=== PATIENT | female | born 1970 | race Caucasian/White ===

== ENCOUNTER 2017-06-01 16:58 | Emergency (ER) | END 2017-06-01 17:39 | disposition home or self-care (01) | DX: K08.89 Other specified disorders of teeth and supporting structures (principal) | CPT/HCPCS: Z7502; Z7610 ==

== ENCOUNTER 2017-06-02 16:28 | Emergency (ER) | payer MEDICAID ==
[~2017-06-02] VITALS: Wt 71.0 kg
[~2017-06-02 16:28] MED LIST: AMOX1TAB10 PO; HYDR-906 PO
[2017-06-02] MEDS ORDERED: HYDROCODONE/APAP (5/325) TAB PO STA (16:59)
[2017-06-02] MEDS ORDERED: ACET1TAB40 PO (17:00)
[2017-06-02] MEDS ORDERED: AMOX1TAB9 PO (17:00)
--- NOTE | 2017-06-02 17:12 | ERD ---
ER Documentation Chief Complaint Date/Time DATE: 06/02/17 TIME: 17:08 Chief Complaint TOOTHACHE, SEEN HERE YESTERDAY WITH SAME HPI 47 year old female presents with left upper molar pain for past week, patient was evaluated at this facility yesterday and was given antibiotics and norco however patient states her pharmacy did not have the medication. She states pain is constant moderate in severity. Denies fever ROS All systems reviewed and are negative except as per history of present illness. Medications Home Meds Active Scripts Amoxicillin/Potassium Clav (Amox-Clav 500-125 mg Tablet) 500-125 mg Tab, 1 TAB PO BID for 10 Days, TAB Prov:WESLEY TRAN PA-C 06/02/17 Acetaminophen with Codeine (Acetaminophen-Cod #3 Tablet) 1 Each Tablet, 1 TAB PO Q6H Y for PAIN, #20 TAB Prov:WESLEY TRAN PA-C 06/02/17 Amoxicillin/Potassium Clav (Amox-Clav 875-125 mg Tablet) 875-125 mg Tab, 1 TAB PO BID for 7 Days, #14 TAB Prov:MALLORY DIAZ PA-C 06/01/17 Hydrocodone/Acetaminophen (Brinson 5-325 Tablet) 1 Each Tablet, 1 TAB PO Q6H Y for PAIN, #7 TAB Prov:MALLORY DIAZ PA-C 06/01/17 Allergies Allergies: Coded Allergies: No Known Allergy (Unverified , 06/02/17) PMhx/Soc History of Surgery: No Anesthesia Reaction: No Hx Neurological Disorder: No Hx Respiratory Disorders: No Hx Cardiac Disorders: No Hx Psychiatric Problems: No Hx Miscellaneous Medical Probl: Yes (GASTRIC ULCER) Hx Alcohol Use: No Hx Substance Use: No Hx Tobacco Use: No Smoking Status: Never smoker Physical Exam Vitals Vital Signs Date Time Temp Pulse Resp B/P Pulse Ox O2 Delivery O2 Flow Rate FiO2 06/02/17 16:34 97.7 78 17 107/70 100 Physical Exam Const: WD.WN Head: left upper molar decay Eyes: Normal Conjunctiva ENT: Normal External Ears, Nose and Mouth. Neck: Full range of motion..~ No meningismus. Resp: Clear to auscultation bilaterally Cardio: Regular rate and rhythm, no murmurs Abd: Soft, non tender, non distended. Normal bowel sounds Skin: No petechiae or rashes Back: No midline or flank tenderness Ext: No cyanosis, or edema Neur: Awake and alert Psych: Normal Mood and Affect Results 24 hrs Current Medications Medications (Trade) Dose Ordered Sig/Chidi Route PRN Reason Start Time Stop Time Status Last Admin Dose Admin Acetaminophen/ Hydrocodone Bitart (Brinson (5/325)) 2 tab ONCE STAT PO 06/02/17 16:59 06/02/17 17:00 DC 06/02/17 17:08 Procedures/MDM 47-year-old female presents with left upper molar decay and pain for the past week, patient has been evaluated at this facility yesterday and was given antibiotics and Brinson however patient states that she is unable to get the medication at the pharmacy. I discussed with her that she can go to a different pharmacy to rock picker her prescription. In the ED I have given her 1 Brinson and Augmentin. Patient stable to be discharged home to follow-up with dentist and to take her prescriptions for different pharmacy. Discussed return to the ER for any worsening sensitive. She understands and agrees with plan. No evidence of facial cellulitis, deep space infection Departure Diagnosis: Primary Impression: Pain, dental Condition: Stable Patient Instructions: Dental Pain Referrals: [facility] ([facility] walk in clinic) Additional Instructions: FOLLOW UP WITH YOUR PRIMARY CARE PHYSICIAN TOMORROW.Return to this facility if you are not improving as expected. Take all medicines as directed. You have been given a medicine which may cause drowsiness.DO NOT DRIVE OR OPERATE DANGEROUS MACHINERY while taking this medicine! Return to this facility if you are not improving as expected. WESLEY TRAN PA-C Jun 02, 2017 17:11
[2017-06-02] MEDS ORDERED: AMOXICILLIN/CLAV 500 MG TAB PO ONE (17:30)
== END 2017-06-02 17:19 | disposition home or self-care (01) ==
LOC: FTE 16:28
DX: K08.89 Other specified disorders of teeth and supporting structures (principal)
CPT/HCPCS: Z7502; Z7610; 99284

== ENCOUNTER 2017-06-18 21:09 | Emergency (ER) | payer MEDICAID ==
[~2017-06-18] VITALS: Ht 154.9 cm; Wt 76.0 kg
[~2017-06-18 21:09] MED LIST changes: +ACET1TAB40 PO; +AMOX1TAB9 PO
[2017-06-18 21:15] VITALS: Ht 154.9 cm; Wt 76.0 kg
[2017-06-19] MEDS ORDERED: SOD CHLORIDE 0.9% 1,000 ML IV STA (00:59)
[2017-06-19] MEDS ORDERED: morphine 2 MG INJ IV STA (00:59)
[2017-06-19] MEDS ORDERED: ONDANSETRON 4 MG INJ IV STA (00:59)
--- NOTE | 2017-06-19 01:13 | ERD ---
ER Documentation Chief Complaint Date/Time DATE: 06/19/17 TIME: 01:09 Chief Complaint SOB, Weakness, and Vomiting x 2 days, abcd intact,nad HPI 47-year-old female presents to emergency department for multiple complaints. Patient is complaining of generalized abdominal pain, more epigastric, vomiting and diarrhea for 2 days. Patient states that she's been sick, she feels short of breath at times, weakness, had a syncopal episode this morning after feeling nauseous and vomiting. Patient denies any chest pain. Patient denies any numbness or tingling. Patient denies any dyspnea and exertion or dyspnea lying down. Patient denies any palpitations or irregular heartbeats. Patient denies any headache. Patient does complain of body aches. Throbbing pain 4/10 scale, vomiting that is symptoms. Patient's complete of generalized abdominal pain intermittent pain for/10 scale, cramping pain accompanying the vomiting and diarrhea. Patient appears to the vomiting, 3 episodes of diarrhea today. Patient does not have any blood in stool or black stool. Patient does not have any blood in the vomit. Patient does not have any hematuria or dysuria. ROS All systems reviewed and are negative except as per history of present illness. Medications Home Meds Active Scripts Amoxicillin/Potassium Clav (Amox-Clav 500-125 mg Tablet) 500-125 mg Tab, 1 TAB PO BID for 10 Days, TAB Prov:WESLEY TRAN PA-C 06/02/17 Acetaminophen with Codeine (Acetaminophen-Cod #3 Tablet) 1 Each Tablet, 1 TAB PO Q6H Y for PAIN, #20 TAB Prov:WESLEY TRAN PA-C 06/02/17 Amoxicillin/Potassium Clav (Amox-Clav 875-125 mg Tablet) 875-125 mg Tab, 1 TAB PO BID for 7 Days, #14 TAB Prov:MALLORY DIAZ PA-C 06/01/17 Hydrocodone/Acetaminophen ([place] 5-325 Tablet) 1 Each Tablet, 1 TAB PO Q6H Y for PAIN, #7 TAB Prov:MALLORY DIAZ PA-C 06/01/17 Allergies Allergies: Coded Allergies: No Known Allergy (Unverified , 06/02/17) PMhx/Soc History of Surgery: Yes (c/s) Anesthesia Reaction: No Hx Neurological Disorder: No Hx Respiratory Disorders: No Hx Cardiac Disorders: No Hx Psychiatric Problems: No Hx Miscellaneous Medical Probl: Yes (GASTRIC ULCER) Hx Alcohol Use: No Hx Substance Use: No Hx Tobacco Use: No Smoking Status: Never smoker FmHx Family History: No coronary disease, No diabetes, No other Physical Exam Vitals Vital Signs Date Time Temp Pulse Resp B/P Pulse Ox O2 Delivery O2 Flow Rate FiO2 06/18/17 21:15 98.5 88 16 116/69 98 Physical Exam GENERAL: The patient is well developed and appropriate for usual state of health, in no apparent distress. CHEST: Clear to auscultation bilaterally. There are no rales, wheezes or rhonchi. HEART: Regular rate and rhythm. No murmurs, clicks, rubs or gallops. No S3 or S4. ABDOMEN: Soft, nontender and nondistended. hyperactive bowel sounds. No rebound or guarding. No gross peritonitis. No gross organomegaly or masses. No Louis sign or McBurney point tenderness. BACK: No midline or flank tenderness. EXTREMITIES: Equal pulses bilaterally. There is no peripheral clubbing, cyanosis or edema. No focal swelling or erythema. Full range of motion. Grossly neurovascularly intact. NEURO: Alert and oriented. Cranial nerves 2-12 intact. Motor strength in all 4 extremities with 5/5 strength. Sensation grossly intact. Normal speech and gait. Negative Romberg sign. Negative pronator drift. SKIN: There is no apparent rash or petechia. The skin is warm and dry. HEMATOLOGIC AND LYMPHATIC: There is no evidence of excessive bruising or lymphedema. No gross cervical, axillary, or inguinal lymphadenopathy. Result Diagram: 06/19/17 0115 06/19/17 0115 Results 24 hrs Laboratory Tests Test 06/19/17 01:10 06/19/17 01:15 Urine Color STRAW Urine Clarity CLEAR Urine pH 6.0 Urine Specific [place] 1.028 Urine Ketones NEGATIVEmg/dL Urine Nitrite NEGATIVEmg/dL Urine Bilirubin NEGATIVEmg/dL Urine Urobilinogen NEGATIVEmg/dL Urine Leukocyte Esterase TRACELeu/ul Urine Microscopic RBC 1/HPF Urine Microscopic WBC 0/HPF Urine Squamous Epithelial Cells FEW/HPF Urine Hemoglobin NEGATIVEmg/dL Urine Glucose NEGATIVEmg/dL Urine Total Protein NEGATIVEmg/dl White Blood Count 8.510^3/ul Red Blood Count 3.7010^6/ul Hemoglobin 11.1g/dl Hematocrit 33.2% Mean Corpuscular Volume 89.7fl Mean Corpuscular Hemoglobin 30.0pg Mean Corpuscular Hemoglobin Concent 33.4g/dl Red Cell Distribution Width 14.2% Platelet Count 26801^3/UL Mean Platelet Volume 9.5fl Neutrophils % 61.7% Lymphocytes % 26.5% Monocytes % 8.4% Eosinophils % 2.2% Basophils % 0.7% Nucleated Red Blood Cells % 0.0/100WBC Neutrophils # (Manual) 5.210^3/ul Lymphocytes # 2.310^3/ul Monocytes # 0.710^3/ul Eosinophils # 0.210^3/ul Basophils # 0.110^3/ul Nucleated Red Blood Cells # 0.010^3/ul Sodium Level 138mmol/L Potassium Level 3.8mmol/L Chloride Level 105mmol/L Carbon Dioxide Level 25mmol/L Anion Gap 12 Blood Urea Nitrogen 21mg/dl Creatinine 0.76mg/dl Glucose Level 85mg/dl Calcium Level 8.8mg/dl Total Bilirubin 0.0mg/dl Direct Bilirubin 0.00mg/dl Indirect Bilirubin 0.0mg/dl Aspartate Amino Transf (AST/SGOT) 19IU/L Alanine Aminotransferase (ALT/SGPT) 30IU/L Alkaline Phosphatase 46IU/L Troponin I < 0.012ng/ml Total Protein 6.2g/dl Albumin 3.5g/dl Globulin 2.70g/dl Albumin/Globulin Ratio 1.29 Lipase 232U/L Current Medications Medications (Trade) Dose Ordered Sig/Chidi Route PRN Reason Start Time Stop Time Status Last Admin Dose Admin Sodium Chloride (NS) 1,000 ml @ 1,000 mls/hr Q1H STAT IV 06/19/17 00:59 06/19/17 01:58 DC 06/19/17 01:22 Morphine Sulfate (morphine) 2 mg ONCE STAT IV 06/19/17 00:59 06/19/17 01:01 DC 06/19/17 01:22 Ondansetron HCl (Zofran Inj) 4 mg ONCE STAT IV 06/19/17 00:59 06/19/17 01:01 DC 06/19/17 01:21 EKG was done, read by me and is normal sinus rhythm at a rate of 68, normal axis , there is no ST changes or changes in the EKG that indicates any cardiac emergencies at this time. Patient's EKG was also reviewed by Dr. Hernandez. Impression: no acute findings on EKG Patient was given medication for pain here in emergency department, after treatment, patient verbalized feeling much better. Patient's pain is improved.Patient was given Zofran here in the emergency department. After treatment, patient was able to tolerate po fluids here in the emergency department without any vomiting. There is no signs and symptoms of dehydration. Normal saline IV bolus was given here in emergency department for rehydration, patient tolerated IV fluids. PROCEDURE: CT Brain without contrast. CLINICAL INDICATION: Pain, headache TECHNIQUE: Routine CT scan of the brain was performed on a high resolution multi detector scanner without intravenous contrast. One or more of the following dose reduction techniques were used: Automated exposure control; Adjustment of the mA and/or kV according to patient size; Use of iterative reconstruction technique. CTDI = 45 mGy. DLP = 720 mGy-cm. COMPARISON: No prior relevant examinations are available for comparison. FINDINGS: Hemorrhage: No evidence of intracranial hemorrhage. Acute ischemic changes: No evidence of acute ischemic changes. Mass effect: None. Parenchymal volume: Within normal limits for age. Ventricular system: Concordant with parenchymal volume. Chronic changes: Parenchymal attenuation is within normal limits. Extracranial soft tissues: Unremarkable. Calvarium: No fractures. Paranasal sinuses: Visualized paranasal sinuses are clear. Mastoid air cells: Visualized mastoid air cells are clear. IMPRESSION: No acute intracranial abnormalities. Normal appearance of the brain parenchyma. RPTAT: AADD .Jeff Jain MD, MD Date Time Electronically viewed and signed by .Jeff Jain MD, on 06/19/2017 02:03 .B/ CC: DINORA CLEMONS NP PROCEDURE: CT abdomen and pelvis without contrast. CLINICAL INDICATION: Abdominal Pain TECHNIQUE: Noncontrast CT examination of the abdomen and pelvis, with axial, sagittal and coronal reformatted images CTDI: 12.04 mGy and DLP: 691.34 mGy-cm. COMPARISON: None. FINDINGS: CT abdomen: The lung bases are clear. The heart size is normal, without pericardial thickening or effusion. The liver is normal in size and density without focal mass or intrahepatic biliary dilatation. The spleen is normal in size and homogeneous in density. The stomach is partially collapsed, but is grossly unremarkable. The pancreas as visualized is normal. The gallbladder and biliary tree are unremarkable and there is no evidence for biliary dilatation. The adrenal glands are symmetric and normal. The kidneys are symmetrically unremarkable as well. No renal calculus or obstructive uropathy or mass lesion is seen. The aorta is of normal caliber. Aortic vascular calcifications are very mild. There is no retroperitoneal lymphadenopathy. The mary jo hepatis region is clear. The bowel and mesentery, as visualized, are equally unremarkable. CT pelvis: The small bowel loops situated within the pelvis are unremarkable. The pelvic organs are normal. The pelvic sidewalls and inguinal regions are clear. The sigmoid colon and rectum are all unremarkable. No mass, lymphadenopathy, or free fluid is seen. No acute inflammation is seen. The appendix is not visualized. The surrounding osseous structures are remarkable for mild degenerative spondylosis of the spine. No osteolytic or osteoblastic lesion is detected. IMPRESSION: Unremarkable CT scan of the abdomen and pelvis. RPTAT: [facility] Physician Jonh Date Time Electronically viewed and signed by Physician Jonh on 06/19/2017 02:42 RS/ CC: DINORA CLEMONS LEAF STICKER Procedures/MDM Medical Decision Making: Patient's symptoms of vomiting and diarrhea most likely consistent with viral gastroenteritis. No electrolyte imbalance noted.There is low suspicion for abdominal emergencies at this time. Patients abdominal exam is normal at this time. Patients radiology exam does not show any abdominal emergencies at this time. There is low suspicion for appendicitis , cholecystitis, abdominal aortic aneurysms or peritonitis at this time. There is low suspicion for sepsis. Patient appears well and is hemodynamically stable. Patient's syncopal episode most likely is from vasovagal, most likely from his nausea possibly weakness from continuous vomiting. It can be also from dehydration. There is low suspicion for neurological emergencies at this time since patients neurologic exam is normal. Patient did not have any altered level consciousness, vomiting, changes in balance or memory after incident. Patients CT scan of the head does not show any neurological emergencies at this time. There is low suspicion for cardiopulmonary emergencies at this time. Patient has low risk factors. EKG is normal, there is no changes in the EKG that indicates cardiac emergencies. There is low suspicion for aortic aneurysm, myocardial infarction, pneumothorax, pleural effusion, pulmonary embolism, or any other cardiopulmonary emergencies at this time. Cardiac markers are normal. Disposition: Home. Condition: Stable Prescription Bentyl, Zofran [place] ibuprofen Instructions: Patient is advised to take medications as prescribed. Patient is advised to rest, increase fluid intake and do brat diet for next 1-2 days and progress as tolerated. Patient is advised that if symptoms are worse, severe abdominal pain, uncontrolled vomiting, high fever, severe flank pain, worst signs and symptoms, to return to the emergency department immediately. Otherwise, patient can follow up with primary care doctor in 5-7 days. Departure Diagnosis: Primary Impression: Viral gastroenteritis Additional Impression: Syncope Syncope type: vasovagal syncope Qualified Code: R55 - Vasovagal syncope Condition: Stable Patient Instructions: Gastroenteritis, Viral (6Y-Adult) Additional Instructions: Patient is advised to take medications as prescribed. Patient is advised to rest , increase fluid intake and do brat diet for next 1-2 days and progress as tolerated. Patient is advised that if symptoms are worse, severe abdominal pain , uncontrolled vomiting, high fever, severe flank pain, worst signs and symptoms , to return to the emergency department immediately. Otherwise, patient can follow up with primary care doctor in 5-7 days. DINORA CLEMONS NP Jun 19, 2017 01:13
[2017-06-19 01:26] LABS: BASOPHIL # 0.1 10^3/ul (0.0-0.1); BASOPHILS % 0.7 % (0.0-2.0); EOSINOPHILS # 0.2 10^3/ul (0.0-0.5); EOSINOPHILS % 2.2 % (0.0-7.0); HEMATOCRIT 33.2 % (37.0-47.0); HEMOGLOBIN 11.1 g/dl (12.0-16.0); LYMPHOCYTES # 2.3 10^3/ul (0.8-2.9); LYMPHOCYTES % 26.5 % (15.0-51.0); MEAN CORPUSCULAR HGB CONC 33.4 g/dl (32.0-37.0); MEAN CORPUSCULAR VOLUME 89.7 fl (82.0-101.0); MEAN PLATELET VOLUME 9.5 fl (7.4-10.4); MONOCYTE # 0.7 10^3/ul (0.3-0.9); MONOCYTES % 8.4 % (0.0-11.0); NEUTROPHILS % 61.7 % (39.0-77.0); PLATELET COUNT 314 10^3/UL (140-415); RED CELL DISTRIBUTION WIDTH 14.2 % (11.5-14.5); WHITE BLOOD COUNT 8.5 10^3/ul (4.8-10.8)
[2017-06-19 01:33] LABS: ADD UMIC YES; UR ASCORBIC ACID NEGATIVE (NEGATIVE); UR BILIRUBIN (Dip) NEGATIVE (NEGATIVE); UR BLOOD (Dip) NEGATIVE (NEGATIVE); UR CLARITY CLEAR (CLEAR); UR COLOR STRAW (YELLOW); UR GLUCOSE (Dip) NEGATIVE (NEGATIVE); UR KETONES (Dip) NEGATIVE (NEGATIVE); UR LEUKOCYTE ESTERASE (Dip) TRACE Leu/ul (NEGATIVE); UR NITRITE (Dip) NEGATIVE (NEGATIVE); UR RBC 1 /HPF (0-5); UR SPECIFIC GRAVITY (Dip) 1.028 (1.003-1.030); UR SQUAMOUS EPITHELIAL CELL FEW /HPF (FEW); UR TOTAL PROTEIN (Dip) NEGATIVE (NEGATIVE); UR UROBILINOGEN (Dip) NEGATIVE (NEGATIVE)
--- NOTE | 2017-06-19 02:03 | RADRPT ---
PROCEDURE: CT Brain without contrast. CLINICAL INDICATION: Pain, headache TECHNIQUE: Routine CT scan of the brain was performed on a high resolution multi detector scanner without intravenous contrast. One or more of the following dose reduction techniques were used: Auto mated exposure control; Adjustment of the mA and/or kV according to patient size; Use of iterative r econstruction technique. CTDI = 45 mGy. DLP = 720 mGy-cm. COMPARISON: No prior relevant examinations are available for comparison. FINDINGS: Hemorrhage: No evidence of intracranial hemorrhage. Acute ischemic changes: No evidence of acute ischemic changes. Mass effect: None. Parenchymal volume: Within normal limits for age. Ventricular system: Concordant with parenchymal volume. Chronic changes: Parenchymal attenuation is within normal limits. Extracranial soft tissues: Unremarkable. Calvarium: No fractures. Paranasal sinuses: Visualized paranasal sinuses are clear. Mastoid air cells: Visualized mastoid air cells are clear. IMPRESSION: No acute intracranial abnormalities. Normal appearance of the brain parenchyma. RPTAT: AADD .Jeff Jain MD, MD Date Time Electronically viewed and signed by .Jeff Jain MD, on 06/19/2017 02:03 .B/
[2017-06-19 02:05] LABS: ALANINE AMINOTRANSFERASE 30 IU/L (13-69); ALBUMIN 3.5 g/dl (3.3-4.9); ALBUMIN/GLOBULIN RATIO 1.29; ALKALINE PHOSPHATASE 46 IU/L (42-121); ANION GAP 12 (8-16); ASPARTATE AMINO TRANSFERASE 19 IU/L (15-46); BLOOD UREA NITROGEN 21 mg/dl (7-20); CALCIUM 8.8 mg/dl (8.4-10.2); CARBON DIOXIDE 25 mmol/L (21-31); CHLORIDE 105 mmol/L (97-110); CREATININE 0.76 mg/dl (0.44-1.00); GLUCOSE 85 mg/dl (70-220); POTASSIUM 3.8 mmol/L (3.5-5.1); SODIUM 138 mmol/L (135-144); TOTAL PROTEIN 6.2 g/dl (6.1-8.1)
[2017-06-19 02:17] LABS: TROPONIN-I < 0.012 ng/ml (0.00-0.12)
--- NOTE | 2017-06-19 02:42 | RADRPT ---
PROCEDURE: CT abdomen and pelvis without contrast. CLINICAL INDICATION: Abdominal Pain TECHNIQUE: Noncontrast CT examination of the abdomen and pelvis, with axial, sagittal and coronal reformatted images CTDI: 12.04 mGy and DLP: 691.34 mGy-cm. COMPARISON: None. FINDINGS: CT abdomen: The lung bases are clear. The heart size is normal, without pericardial thickening or effusion. The liver is normal in size and density without focal mass or intrahepatic biliary dilatation. The spleen is normal in size and homogeneous in density. The stomach is partially collapsed, but is radha ssly unremarkable. The pancreas as visualized is normal. The gallbladder and biliary tree are unre markable and there is no evidence for biliary dilatation. The adrenal glands are symmetric and norm al. The kidneys are symmetrically unremarkable as well. No renal calculus or obstructive uropathy o r mass lesion is seen. The aorta is of normal caliber. Aortic vascular calcifications are very mild. There is no retroper itoneal lymphadenopathy. The mary jo hepatis region is clear. The bowel and mesentery, as visualized , are equally unremarkable. CT pelvis: The small bowel loops situated within the pelvis are unremarkable. The pelvic organs are normal. T he pelvic sidewalls and inguinal regions are clear. The sigmoid colon and rectum are all unremarkab le. No mass, lymphadenopathy, or free fluid is seen. No acute inflammation is seen. The appendix is not visualized. The surrounding osseous structures are remarkable for mild degenerative spondylosis of the spine. N o osteolytic or osteoblastic lesion is detected. IMPRESSION: Unremarkable CT scan of the abdomen and pelvis. RPTAT: [facility] Physician Jonh Date Time Electronically viewed and signed by Physician Jonh on 06/19/2017 02:42 RS/
[2017-06-19] MEDS ORDERED: HYDR-906 PO (02:45)
[2017-06-19] MEDS ORDERED: ONDA4TAB14 PO (02:45)
[2017-06-19] MEDS ORDERED: DICY10CA60 PO (02:45)
[2017-06-19] MEDS ORDERED: IBUP-1542 PO (02:45)
[2017-06-19 03:02] VITALS: BP 134/83; PULSE 84; RESP 20
== END 2017-06-19 03:04 | disposition home or self-care (01) ==
LOC: FTE 21:09
DX: A08.4 Viral intestinal infection, unspecified (principal); R55 Syncope and collapse
CPT/HCPCS: 36415; 70450; 74176; 80053; 81001; 83690; 84484; 85025; 93005; 96374; 96375; J2270; J2405; J7030; Z7502

== ENCOUNTER 2019-04-14 05:46 | Emergency (ER) | payer SELFPAY ==
[~2019-04-14] VITALS: Ht 157.5 cm; Wt 63.1 kg
[~2019-04-14 05:46] MED LIST changes: +DICY10CA40 PO; +HYDR-4011 PO; -HYDR-906 PO; +IBUP-1542 PO; +ONDA4TAB14 PO
[2019-04-14 05:48] VITALS: BP 145/97; PULSE 87; RESP 18; Ht 157.5 cm; Wt 63.1 kg
[2019-04-14] MEDS ORDERED: LIDOCAINE/MYLANTA 40 ML BTL PO STA (06:30)
[2019-04-14] MEDS ORDERED: BELLADONNA/PHENOBARBITAL TAB PO STA (06:30)
[2019-04-14] MEDS ORDERED: FAMOTIDINE 20 MG TAB PO STA (06:30)
[2019-04-14] MEDS ORDERED: OMEP20CA16 PO (06:31)
--- NOTE | 2019-04-14 06:37 | ERD ---
ER Documentation Chief Complaint Chief Complaint upper abdominal pain since yesterday HPI Very pleasant 49-year-old female with known history of gastritis and gastroesophageal reflux who has taken PPI in the past but is not currently taking it. The patient describes over the past 24 to 48 hours she has been having burning epigastric abdominal discomfort that is postprandial. She states similar signs and symptoms related to her dyspepsia and reflux. She denies any chest pain or exertional symptoms. No hematemesis, no melena. She denies any right upper quadrant abdominal pain. No fevers or chills or cough. No diaphoresis. ROS All systems reviewed and are negative except as per history of present illness. Medications Home Meds Active Scripts Omeprazole* (Omeprazole*) 20 Mg Capsule.dr, 20 MG PO DAILY for 30 Days Prov:CECY HERR MD 04/14/19 Hydrocodone/Acetaminophen (Delhi 5-325 Tablet) 1 Each Tablet, 1 TAB PO Q6H PRN for SEVERE PAIN LEVEL 7-10, #20 TAB Prov:DINORA CLEMONS NP 06/19/17 Ibuprofen* (Motrin*) 600 Mg Tab, 600 MG PO Q6H PRN for PAIN AND OR ELEVATED TEMP, #30 TAB Prov:DINORA CLEMONS NP 06/19/17 Ondansetron (Ondansetron Odt) 4 Mg Tab.rapdis, 4 MG PO Q8 PRN for NAUSEA AND/OR VOMITING, #30 TAB Prov:DINORA CLEMONS NP 06/19/17 Dicyclomine HCl (Dicyclomine HCl) 10 Mg Capsule, 20 MG PO QID, #20 CAP Prov:DINORA CLEMONS NP 06/19/17 Amoxicillin/Potassium Clav (Amox-Clav 500-125 mg Tablet) 500-125 mg Tab, 1 TAB PO BID for 10 Days, TAB Prov:WESLEY TRAN PA-C 06/02/17 Acetaminophen with Codeine (Acetaminophen-Cod #3 Tablet) 1 Each Tablet, 1 TAB PO Q6H PRN for PAIN, #20 TAB Prov:WESLEY TRAN PA-C 06/02/17 Amoxicillin/Potassium Clav (Amox-Clav 875-125 mg Tablet) 875-125 mg Tab, 1 TAB PO BID for 7 Days, #14 TAB Prov:MALLORY DIAZ PA-C 06/01/17 Hydrocodone/Acetaminophen ([place] 5-325 Tablet) 1 Each Tablet, 1 TAB PO Q6H PRN for PAIN, #7 TAB Prov:MALLORY DIAZ PA-C 06/01/17 Allergies Allergies: Coded Allergies: No Known Allergy (Unverified , 06/02/17) PMhx/Soc History of Surgery: Yes (c/s) Anesthesia Reaction: No Hx Neurological Disorder: No Hx Respiratory Disorders: No Hx Cardiac Disorders: No Hx Psychiatric Problems: No Hx Miscellaneous Medical Probl: Yes (GASTRIC ULCER) Hx Alcohol Use: No Hx Substance Use: No Hx Tobacco Use: No Smoking Status: Never smoker FmHx Family History: No diabetes Physical Exam Vitals Vital Signs Date Temp Pulse Resp B/P (MAP) Pulse Ox O2 O2 Flow FiO2 Time Delivery Rate 04/14/19 97.3 87 18 145/97 99 05:48 (113) Physical Exam General: Well developed, well nourished, no acute distress Head: Normocephalic, atraumatic. Eyes: Pupils equally reactive, EOM intact ENT: Moist mucous membranes Neck: Supple, no lymphadenopathy Respiratory: Lungs clear bilaterally, no distress Cardiovascular: RRR, no murmurs, rubs, or gallops Abdominal: Soft, non-tender, non-distended, no peritoneal signs, negative Louis sign : Deferred MSK: No edema, no unilateral swelling, 5/5 strength Neurologic: Alert and oriented, moving all extremities, normal speech, no focal weakness, no cerebellar signs Skin: No rash Psych: Normal mood Results 24 hrs Current Medications Medications Dose Sig/Chidi Start Time Status Last (Trade) Ordered Route PRN Stop Time Admin Dose Reason Admin Famotidine 20 mg ONCE STAT 04/14/19 DC (Pepcid) PO 06:30 04/14/19 06:31 40 ml ONCE STAT 04/14/19 DC Miscellaneous PO 06:30 Medication 04/14/19 06:31 (Gi Cocktail (2)) Belladonna/ 2 tab ONCE STAT 04/14/19 DC Phenobarbital PO 06:30 () 04/14/19 06:31 Procedures/MDM MEDICAL DECISION MAKING: Clinical exam and history is very consistent with acute exacerbation of her chronic dyspepsia, reflux and/or gastritis. Patient exhibits no signs or symptoms concerning for complication such as perforation, acute appendicitis, about a biliary obstruction or acute cholecystitis. Patient has no exertional symptoms to suggest cardiac etiology. Abdominal exam is very benign and reassuring. At this point I do not believe the patient warrants laboratory testing or diagnostic imaging. GI cocktail would be reasonable. The patient will be reinitiated on a PPI. She was advised to follow-up with her parking ramp attendant and was given referral information. ER COURSE: * GI cocktail provided with improved symptomatology. Patient stable for discharge. CONSULTATION: None DISPOSITION PLAN: The patient does not have an identifiable emergent medical condition that warrants inpatient hospitalization at this time. The patient is deemed safe for discharge with outpatient follow-up. We discussed follow up with the patient's primary care doctor within 24 to 48 hours as needed. We also discussed return to the emergency room for worsening symptoms or worsening condition. Outpatient referral: Gastroenterology Discharge Medications: Omeprazole Departure Diagnosis: Primary Impression: Dyspepsia Additional Impression: Epigastric abdominal pain Condition: Stable Patient Instructions: Gerd (Adult), Epigastric Pain (Uncertain Cause) Referrals: NORAH GU MD [facility] YOU HAVE RECEIVED A MEDICAL SCREENING EXAM AND THE RESULTS INDICATE THAT YOU DO NOT HAVE A CONDITION THAT REQUIRES URGENT TREATMENT IN THE EMERGENCY DEPARTMENT. FURTHER EVALUATION AND TREATMENT OF YOUR CONDITION CAN WAIT UNTIL YOU ARE SEEN IN YOUR DOCTORS OFFICE WITHIN THE NEXT 1-2 DAYS. IT IS YOUR RESPONSIBILITY TO MAKE AN APPOINTMENT FOR FOLOW-UP CARE. IF YOU HAVE A PRIMARY DOCTOR --you should call your primary doctor and schedule an appointment IF YOU DO NOT HAVE A PRIMARY DOCTOR YOU CAN CALL OUR PHYSICIAN REFERRAL HOTLINE AT IF YOU CAN NOT AFFORD TO SEE A PHYSICIAN YOU CAN CHOSE FROM THE FOLLOWING [facility] CL[facility] [address] [facility] [address] [facility] [address] [facility] [address] [facility] [address] [facility]. [facility]. [address] [facility]. [facility] YOU HAVE RECEIVED A MEDICAL SCREENING EXAM AND THE RESULTS INDICATE THAT YOU DO NOT HAVE A CONDITION THAT REQUIRES URGENT TREATMENT IN THE EMERGENCY DEPARTMENT. FURTHER EVALUATION AND TREATMENT OF YOUR CONDITION CAN WAIT UNTIL YOU ARE SEEN IN YOUR DOCTORS OFFICE WITHIN THE NEXT 1-2 DAYS. IT IS YOUR RESPONSIBILITY TO MAKE AN APPOINTMENT FOR FOLOW-UP CARE. IF YOU HAVE A PRIMARY DOCTOR --you should call your primary doctor and schedule and appointment IF YOU DO NOT HAVE A PRIMARY DOCTOR YOU CAN CALL OUR PHYSICIAN REFERRAL HOTLINE AT . IF YOU CAN NOT AFFORD TO SEE A PHYSICIAN YOU CAN CHOSE FROM THE FOLLOWING [facility] INSTITUTIONS: [facility] [id number] [place] [address] [facility] [address] [place], [place] [id number] [place] [address] [address] [place] [address] Additional Instructions: Call your primary care doctor TOMORROW for an appointment during the next 1 WEEK.Tell the typing secretary that you were referred from this facility.See the doctor sooner or return here if your condition worsens before your appointment time. CECY HERR MD Apr 14, 2019 06:37
== END 2019-04-14 06:48 | disposition home or self-care (01) ==
LOC: E/R 05:46
DX: R10.13 Epigastric pain (principal)
CPT/HCPCS: 99283